=== PATIENT | female | born 1980 | race Caucasian/White ===

== ENCOUNTER → 2017-03-21 | Outpatient (CLI) | payer BC ==
[~2017-03-21] MED LIST: CEFD300C PO; SULF-221 PO
[2017-03-21 11:56] VITALS: BP 119/83
--- NOTE | 2017-03-21 11:56 | Urgent Care T Sheet Gen (E) ---
Intake General Temperature (Fahrenheit): 97.8 Pulse: 84 Blood Pressure Systolic: 119 Blood Pressure Diastolic: 83 Respirations: 18 SPO2: 99 Chief Complaint: UC Genitourinary Complaint Description of Symptoms Comes in today for complaints of burning with urination x several days. No high fevers.no severe back pain and no blood seen in the urine, has had UTIs in past - 2 or 3 last year. No other complaints, Has IUD no chance or Source: Patient History of Present Illness Onset & Duration: Days Timing: Still present Severity: Mild Recent Trauma: No Allergies: Coded Allergies: Penicillins (Unverified Allergy, Unknown, 03/25/16) Home Meds Active Scripts Cefdinir 300 Mg [id number] Mg PO BID Infection #12 CAP Ref 0 Prov:ALANIS STONE 08/16/16 Respiratory Constitutional Symptoms: No syptoms reported EENTM: No symptoms reported Respiratory: No symptoms reported Genitourinary: Dysuria Frequency All Other Systems Reviewed Remaining Systems: All other systems reviewed with negative findings Past Lvglqoc-Akijsv-Ihjngt Hx Patient's Social History Alcohol Use: Denies Use Smoking Status: Never smoker Genitouinary Genitourinary History: Bladder Infection, Kidney infection Cancer History of Cancer?: No Physical Exam Physical Exam General Appearance: WD/WN No apparent distress Eyes, Ears, Nose, Throat Ex: PERRL/EOMI TMs normal Pharynx normal Neck Exam: Full range of motion Supple Respiratory Exam: Lungs clear Normal breath sounds No respiratory distress No accessory muscles used Cardiovascular Exam: Regular rate, rhythm No murmur GI/ Exam: Non tender No organomegaly Normal bowel sounds Back Exam: Normal Inspection No CVA tenderness Skin Exam: Normal color Warm/dry/intact No rashes Neurologic/Psychiatric Exam: Oriented times 4 CN's II-X nml Progress/Orders Lab Results Labs Results: UA (Moderte blood , trace leukocytes, SG 1.010 Ph 5) Departure Urgent Care Impression Chief Complaint: UC Genitourinary Complaint Impression: Primary Impression: Urinary tract infection Qualified Code: N30.00 - Acute cystitis without hematuria Departure Disposition: HOME OR SELF-CARE Condition: Stable Referrals: ELHAM LUO MD (PCP) Additional Instructions: Long talk with her rest hydrate Tylenol for pain or fever f/u PCP Good handwashing, Ok to drink cranberry juice declines pyridium at this time She agrees to plan of care Urine culture sent to [facility] Scripts Sulfamethoxazole/Trimethoprim (Sulfamethoxazole/Trimethoprim DS 800mg/160mg)1 Each Tablet1 Each PO BID #14 TAB Prov:SHREYAS JOHN APRN () 03/21/17 End of report . SHREYAS JOHN APRN () Mar 21, 2017 11:56
--- NOTE | 2017-03-25 12:22 | Urgent Care Follow Up Note (E) ---
Urgent Care Follow Up Note Urine culture showed "no growth" Scripts Sulfamethoxazole/Trimethoprim (Sulfamethoxazole/Trimethoprim DS 800mg/160mg)1 Each Tablet1 Each PO BID #14 TAB Prov:SHREYAS JOHN APRN () 03/21/17 KURT STOVALL March 25, 2017 12:21
== END ==
LOC: MHUC 11:39
PROVIDERS: ATTEND Nurse Practitioner
DX: N30.01 Acute cystitis with hematuria (principal)
CPT/HCPCS: 81002; 99213

== ENCOUNTER → 2017-03-28 | Outpatient (CLI) | payer BC ==
[~2017-03-28] MED LIST changes: +FLUC150T PO
[2017-03-28 10:49] VITALS: BP 107/70
--- NOTE | 2017-03-28 10:49 | Urgent Care T Sheet Ped (E) ---
Information Intake General Temperature (Fahrenheit): 98.5 Pulse: 74 Blood Pressure Systolic: 107 Blood Pressure Diastolic: 70 Respirations: 18 SPO2: 100 History of Present Illness Initial Comments Patient presents for a recheck. Was seen last Thursday for a 3 day history of pelvic burning/itching and dysuria. UA was done which showed leukocytes among other infectious markers therefore was started on Bactrim. Urine culture showed "no growth" however. Patient states she finished her Bactrim prescription yesterday and is still having symptoms. States she isn't urinating frequently like with a UTI and it doesn't necessary hurt her bladder area when she urinates. It luis more on the outside. Has also noted a small amount of discharge. Does state that her bladder area feels full. Has an IUD which has been in place for quite a while. States her last PAP was normal however they commented that she had yeast at that time. Patient denies any concern for STI Allergies: Coded Allergies: Penicillins (Unverified Allergy, Unknown, 03/25/16) Home Meds Active Scripts Fluconazole (Diflucan)150 Mg [id number] Mg PO ONCE #2 TAB Take first tab today. May repeat in 3-4 days if needed. Prov:KURT STOVALL 03/28/17 Sulfamethoxazole/Trimethoprim (Sulfamethoxazole/Trimethoprim DS 800mg/160mg)1 Each Tablet1 Each PO BID #14 TAB Prov:SHREYAS JOHN APRN () 03/21/17 Cefdinir 300 Mg [id number] Mg PO BID Infection #12 CAP Ref 0 Prov:ALANIS STONE 08/16/16 Respiratory Constitutional Symptoms: No syptoms reported EENTM: No symptoms reported Respiratory: No symptoms reported Cardiovascular: No symptoms reported Gastrointestinal/Abdominal: Abdominal pain (bladder fullness) Genitourinary: Discharge present Pain (burning to pelvic area) All Other Systems Reviewed Remaining Systems: All other systems reviewed with negative findings Past Zbvejtx-Kodmxr-Vxjeuu Hx Genitouinary Genitourinary Disorders HX: Bladder Infection, Kidney infection Cancer History of Cancer?: No Physicial Exam Pediatric General Appearance: No acute distress, Active Comment Pelvic exam was deferred per patient's request. No CVA tenderness. Slight suprapubic tenderness with palpation. Progress/Orders Lab Results Labs Results: UA UA Lab Results ph 6.0 Specific [place] 1.015 Protein - Ketones - Blood - Nitrates - Leukocyte Esterase - Departure Urgent Care Impression Impression: Primary Impression: Vulvovaginal candidiasis Departure Disposition: HOME OR SELF-CARE Condition: Stable Referrals: ELHAM HARKINS MD (PCP) Additional Instructions: Long discussion with patient regarding workup, treatment and symptoms. After talking with the patient, I was fairly confident her symptoms were due to a vaginal yeast infection, ana given her history of yeast showing up on a previous PAP. I offered to perform a pelvic exam to assess however she declined. would rather treat based on symptoms. I have started her on Diflucan x 1. May repeat on Thursday if no better. With her repeat UA being normal today and he urine culture showing no growth, I don't believe her symptom are due to a bacterial infection. Her symptoms could be from PID possibly from her IUD. That may need to be evaluated if her symptoms persist despite Diflucan treatment. Patient agreed. If no better following Diflucan treatment, she may either f/u here at or with Dr Harkins. All questions were answered. Patient understands DC instructions. Scripts Fluconazole (Diflucan)150 Mg [id number] Mg PO ONCE #2 TAB Take first tab today. May repeat in 3-4 days if needed. Prov:KURT STOVALL 03/28/17 End of report . KURT STOVALL March 28, 2017 10:29
== END ==
LOC: MHUC 09:52
PROVIDERS: ATTEND Physician Assistant
DX: B37.3 Candidiasis of vulva and vagina (principal)
CPT/HCPCS: 81002; 99213